=== PATIENT | male | born 1995 | race Caucasian/White ===

== ENCOUNTER 2023-12-18 18:41 | Emergency (ER) | payer SELFPAY ==
[2023-12-18 18:46] VITALS: BP 152/97
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
[2023-12-18] MEDS: MOTRIN 600 MG PO (21:33)
[2023-12-18 21:35] VITALS: BP 127/87
[2023-12-18 21:36] VITALS: BP 127/87
== END 2023-12-18 21:37 | disposition home or self-care (01) ==
LOC: EMR 18:41
PROVIDERS: EMERGENCY PHYSICIAN Emergency Medicine
DX: S63.502A Unspecified sprain of left wrist, initial encounter (principal); V89.2XXA Person injured in unspecified motor-vehicle accident, traffic, initial encounter; R03.0 Elevated blood-pressure reading, without diagnosis of hypertension
CPT/HCPCS: 99284; 73110; 93005